=== PATIENT | male | born 1955 | race Caucasian/White ===

== ENCOUNTER → 2021-05-20 10:53 | Outpatient (BNVA) | payer MEDICARE, OTHER, SELFPAY | PROVIDERS: PCP Family Medicine Adult Medicine; Visit Provider Family Medicine Adult Medicine | DX: Z00.00 Encounter for general adult medical examination without abnormal findings (principal); J01.90 Acute sinusitis, unspecified; Z87.438 Personal history of other diseases of male genital organs; J30.9 Allergic rhinitis, unspecified; Z83.3 Family history of diabetes mellitus; Z68.28 Body mass index [BMI] 28.0-28.9, adult; Z71.89 Other specified counseling | CPT/HCPCS: 80053; 83036; 84443; 85025; G0103 ==

== ENCOUNTER 2021-06-21 20:32 | Emergency (ER) | payer MEDICARE, OTHER, SELFPAY ==
--- NOTE | 2021-06-21 03:22 | XRR_ITS ---
PROCEDURE INFORMATION: Exam: XR Chest Exam date and time: 06/21/2021 3:22 AM Age: 66 years old Clinical indication: Pain; Chest pressure; Additional info: Cp TECHNIQUE: Imaging protocol: XR of the chest. Views: 1 view. COMPARISON: No relevant prior studies available. FINDINGS: Lungs: Unremarkable. No consolidation. Pleural spaces: Unremarkable. No pleural effusion. No pneumothorax. Heart/Mediastinum: Unremarkable. No cardiomegaly. Bones/joints: Unremarkable. XR/XR chest 1V portable [id number] IMPRESSION: No acute findings.
[2021-06-21 20:41] VITALS: BP 146/84; PULSE 86; RESP 18; TEMP 36.1; O2SAT 96; BMI 28.0
[2021-06-21 21:38] VITALS: BP 125/69; PULSE 84; RESP 20; O2SAT 94
[2021-06-21 22:00] VITALS: BP 131/80; PULSE 74; RESP 16; O2SAT 93
--- NOTE | 2021-06-21 22:17 | W.ED.SOB ---
Documented by User: Lenard Ramirez DO 06/22/21 06:12 HPI - SOB/Dyspnea General: Chief Complaint: Shortness of Breath/Dyspnea Stated Complaint: SOB Time Seen by Provider: 06/21/21 21:07 History of Present Illness: HPI Narrative: 66-year-old male presents with mainly right-sided and mainly posterior chest discomfort. Is been going on since yesterday. He notes that he was mowing under a trailer house yesterday, and did a lot of pushing and pulling. He is thinking that it might just be a pulled muscle. He called his brother who is a physician. Because it is much worse with inspiration, and he feels short of breath with it, his brother was concerned that it could be more than just that. He denies any fever. He denies cough. No diarrhea or other COVID-19 symptoms. No long car trips. No history of heart disease. MD elicited complaint: shortness of breath, pain with inspiration and chest pain Pertinent past history: other Onset (ago): hour(s) (24) Severity: moderate Exacerbating factors: movement and coughing Associated symptoms: Reports chest pain; Deny abdominal pain, chest congestion, cough, diaphoresis, fever(s), hemoptysis, nausea, palpitations or vomiting Treatment prior to arrival: none Review of Systems Const: Denies: fever(s) or diaphoresis Card: Reports: chest pain; Denies: palpitations Resp: Denies: hemoptysis or chest congestion GI: Denies: abdominal pain, nausea or vomiting [facility] ED PFSH: Medical History (Updated 06/22/21 @ 09:09 by Samuel Quinn DO) Allergic rhinitis due to allergen FH: diabetes mellitus Hx of chronic prostatitis Medicare annual wellness visit, initial Sinusitis, acute Surgical History (Updated 05/20/21 @ 08:58 by Fredrick Alexander MD) Hx of shoulder surgery Family History (Updated 05/20/21 @ 08:34 by Ruby Scott LPN) Other CAD (coronary artery disease) Social History (Updated 05/20/21 @ 08:36 by Ruby Scott LPN) Smoking and tobacco status: never smoked Alcohol intake: never Marital status: Number of children: 3 Number of grandchildren: 12 Current occupational status: employed and retired Physical Exam Const: GENERAL APPEARANCE: cooperative, comfortable and well developed; not ill appearing and not frail appearing ORIENTATION/CONSCIOUSNESS: Yes oriented to person, Yes oriented to place and Yes oriented to time HENMT: COMMON NORMALS: normocephalic, external ears normal and Normal external nose present HEAD & SCALP: normocephalic FACE & SINUS: normal facial exam NOSE: Normal external nose present and No nasal discharge present EXTERNAL EAR: Yes external ears normal Eye: COMMON NORMALS: Equal, round and reactive pupils present, EOMs intact bilaterally and conjunctivae normal EYELID: eyelids normal CONJUNCTIVA: Yes conjunctivae normal PUPIL: Yes Equal, round and reactive pupils present Neck/C-Spine: GENERAL: No tracheal deviation Chest: COMMONS NORMALS: normal inspection of the chest CHEST: No tenderness Resp: COMMON NORMALS: clear to auscultation bilaterally EFFORT & INSPECTION: No tachypneic, No respiratory distress, No retractions, No uses accessory muscles and No tracheal deviation AUSCULTATION: clear to auscultation bilaterally, no rhonchi, no wheezes and lung sounds not diminished Cardio: COMMON NORMALS: regular rate and regular rhythm RATE: regular rate RHYTHM: regular rhythm HEART SOUNDS: no murmurs PERIPHERAL PULSES: radial pulses present GI: INSPECTION: No abdominal distension AUSCULTATION: No Hyperactive bowel sounds present and No Hypoactive bowel sounds present PALPATION: No Guarding due to palpation present (GI) and No Rigid due to palpation : COMMON NORMALS: Yes no CVA tenderness BLADDER/KIDNEY EXAM: Yes no CVA tenderness Back/Pelvis: COMMON NORMALS: no CVA tenderness Neuro: SENSORIUM/ORIENTATION: Yes oriented to person, Yes oriented to place and Yes oriented to time Psych: COMMON NORMALS: mental status grossly normal Skin: COMMON NORMALS: no rashes or lesions noted GENERAL SKIN EXAM: no rashes or lesions noted Course Vital Signs: Vital signs: Vital Signs Temperature 96.9 F L 06/21/21 20:41 Pulse Rate 73 06/22/21 07:00 Respiratory Rate 20 H 06/22/21 07:00 Blood Pressure 142/74 06/22/21 07:00 Pulse Oximetry 95 06/22/21 07:00 MDM - SOB/Dyspnea MDM Narrative: Medical decision making narrative: 66-year-old gentleman presents with a pleuritic type chest pain worsening with inspiration. He has not had a cough or fever. He is short of breath with the pain. His EKG shows a normal sinus rhythm with no acute ST elevation. His rate has been in the 70s. His axis is normal. He is normotensive. Saturations are from 92 to 97% on room air. He is not tachypneic. His D-dimer was 1000. Chest x-ray is normal. He has a contrast dye allergy, which evidently causes angioedema, because of this, we have been waiting on isotope for a V/Q scan which is yet to be done. He will be checked out to Dr. Quinn at shift change. Lab Data: Labs: Lab Results 06/21/21 06/21/21 06/21/21 Range/Units 00:20 21:30 21:30 WBC 6.5 (4.0-10.0) 10^3/ uL RBC 4.52 (4.1-5.3) 10^6/u L Hgb 13.2 (11.7-16.6) g/dL Hct 40.9 L (42.0-52.0) % MCV 90.5 (80-94) fl MCH 29.2 (28.0-34.0) pg MCHC 32.3 (30.0-36.0) g/dL RDW 12.9 (12.1-15.1) % Plt Count 260 (130-400) 10^3/c mm MPV 10.1 (7.4-10.4) fL Neut % (Auto) 63.1 % Lymph % (Auto) 22.3 % [place] % (Auto) 12.0 % Eos % (Auto) 1.4 % Baso % (Auto) 0.6 % Neut # (Auto) 4.11 (1.8-7.7) 10^3/u L Lymph # (Auto) 1.5 (0.8-4.8) 10^3/u L [place] # (Auto) 0.8 (0.2-0.9) 10^3/u L Eos # (Auto) 0.1 (0.0-0.8) 10^3/u L Baso # (Auto) 0.0 (0.0-0.1) 10^3/u L Nucleated RBC % (a uto) 0 % Nucleated RBCs # 0.0 /100WBC D-Dimer 1.03 H (0-0.59) ug/mIFE U Sodium (136-145) mmol/L Potassium (3.5-5.1) mmol/L Chloride (98-107) mmol/L Carbon Dioxide (22-29) mmol/L Anion Gap (5-19) BUN (8-23) mg/dL Creatinine (0.7-1.2) mg/dL GFR Calculation (90-130) mL/min Glucose (65-115) mg/dL Calculated Osmolal ity (285-295) mOsm/k g Calcium (8.5-10.5) mg/dL Total Bilirubin (0.15-1.2) mg/dL AST (0-40) U/L ALT (0-41) U/L Alkaline Phosphata se (40-130) IU/L Troponin T Baselin e (0-15) ng/L Troponin T 120 Min [place] 8.47 (0-15) ng/L Delta Troponin T 0.47 (0-10) ABS# Troponin T Hi Sens 6Hr (0-15) ng/L Troponin T Hi Sens 6Hr Delta (0-12) ng/L NT-Pro-B Natriuret Pep (0-125) pg/mL Total Protein (6.6-8.7) g/dL Albumin (3.5-5.2) g/dL Globulin (1.3-4.6) g/dL SARS-CoV-2 Ag (Rap id) (Negative) 06/21/21 06/21/21 06/22/21 Range/Units 21:30 21:30 00:45 WBC (4.0-10.0) 10^3/ uL RBC (4.1-5.3) 10^6/u L Hgb (11.7-16.6) g/dL Hct (42.0-52.0) % MCV (80-94) fl MCH (28.0-34.0) pg MCHC (30.0-36.0) g/dL RDW (12.1-15.1) % Plt Count (130-400) 10^3/c mm MPV (7.4-10.4) fL Neut % (Auto) % Lymph % (Auto) % [place] % (Auto) % Eos % (Auto) % Baso % (Auto) % Neut # (Auto) (1.8-7.7) 10^3/u L Lymph # (Auto) (0.8-4.8) 10^3/u L [place] # (Auto) (0.2-0.9) 10^3/u L Eos # (Auto) (0.0-0.8) 10^3/u L Baso # (Auto) (0.0-0.1) 10^3/u L Nucleated RBC % (a uto) % Nucleated RBCs # /100WBC D-Dimer (0-0.59) ug/mIFE U Sodium 139 (136-145) mmol/L Potassium 4.3 (3.5-5.1) mmol/L Chloride 102 (98-107) mmol/L Carbon Dioxide 31 H (22-29) mmol/L Anion Gap 10.3 (5-19) BUN 22 (8-23) mg/dL Creatinine 0.9 (0.7-1.2) mg/dL GFR Calculation 84.7 L (90-130) mL/min Glucose 100 (65-115) mg/dL Calculated Osmolal ity 291 (285-295) mOsm/k g Calcium 8.8 (8.5-10.5) mg/dL Total Bilirubin 0.3 (0.15-1.2) mg/dL AST 18 (0-40) U/L ALT 17 (0-41) U/L Alkaline Phosphata se 60 (40-130) IU/L Troponin T Baselin e 8 (0-15) ng/L Troponin T 120 Min [place] (0-15) ng/L Delta Troponin T (0-10) ABS# Troponin T Hi Sens 6Hr (0-15) ng/L Troponin T Hi Sens 6Hr Delta (0-12) ng/L NT-Pro-B Natriuret Pep 50 (0-125) pg/mL Total Protein 6.6 (6.6-8.7) g/dL Albumin 4.0 (3.5-5.2) g/dL Globulin 2.6 (1.3-4.6) g/dL SARS-CoV-2 Ag (Rap id) Negative (Negative) 06/22/21 Range/Units 03:53 WBC (4.0-10.0) 10^3/ uL RBC (4.1-5.3) 10^6/u L Hgb (11.7-16.6) g/dL Hct (42.0-52.0) % MCV (80-94) fl MCH (28.0-34.0) pg MCHC (30.0-36.0) g/dL RDW (12.1-15.1) % Plt Count (130-400) 10^3/c mm MPV (7.4-10.4) fL Neut % (Auto) % Lymph % (Auto) % [place] % (Auto) % Eos % (Auto) % Baso % (Auto) % Neut # (Auto) (1.8-7.7) 10^3/u L Lymph # (Auto) (0.8-4.8) 10^3/u L [place] # (Auto) (0.2-0.9) 10^3/u L Eos # (Auto) (0.0-0.8) 10^3/u L Baso # (Auto) (0.0-0.1) 10^3/u L Nucleated RBC % (a uto) % Nucleated RBCs # /100WBC D-Dimer (0-0.59) ug/mIFE U Sodium (136-145) mmol/L Potassium (3.5-5.1) mmol/L Chloride (98-107) mmol/L Carbon Dioxide (22-29) mmol/L Anion Gap (5-19) BUN (8-23) mg/dL Creatinine (0.7-1.2) mg/dL GFR Calculation (90-130) mL/min Glucose (65-115) mg/dL Calculated Osmolal ity (285-295) mOsm/k g Calcium (8.5-10.5) mg/dL Total Bilirubin (0.15-1.2) mg/dL AST (0-40) U/L ALT (0-41) U/L Alkaline Phosphata se (40-130) IU/L Troponin T Baselin e (0-15) ng/L Troponin T 120 Min [place] (0-15) ng/L Delta Troponin T (0-10) ABS# Troponin T Hi Sens 6Hr 8.40 (0-15) ng/L Troponin T Hi Sens 6Hr Delta 0.40 (0-12) ng/L NT-Pro-B Natriuret Pep (0-125) pg/mL Total Protein (6.6-8.7) g/dL Albumin (3.5-5.2) g/dL Globulin (1.3-4.6) g/dL SARS-CoV-2 Ag (Rap id) (Negative) Discharge Plan Discharge Patient Disposition: Home Clinical Impression: Chest pain, pleuritic Condition: Stable Prescriptions: New aspirin 81 mg tablet,delayed release (DR/EC) 81 mg PO DAILY Qty: 30 RF: 0 No Action loratadine [Claritin] 10 mg tablet 20 mg PO BID RF: 0 potassium 99 mg Tablet 99 mg PO DAILY RF: 0 magnesium 250 mg Tablet 250 mg PO DAILY RF: 0 saw palmetto 500 mg Capsule 500 mg PO DAILY RF: 0 Fish Oil 1,200 (144-216) mg Capsule 1 cap PO DAILY RF: 0 Probiotic 20 billion cell Capsule 20,000 mmu cells PO DAILY RF: 0 Discharge Orders: Discharge ED (Routine); Ordered 06/22/21 Ordered By: Samuel Quinn Referrals: Fredrick Alexander MD [Primary Care Provider] - Discharge Diet: Usual diet Discharge Activity: Limit activity as instructed Patient Instructions: Opioid Safety Activity Restrictions/Additional Instructions: Baby aspirin daily. Avoid any exertional work avoid heat exposure. If you have recurrence of chest discomfort return. Sign Out Sign Out Data: Patient Sign Out occurred on 06/22/21 at 07:22. Patient's care was discussed, and care was transferred from to Samuel Quinn DO. Coding Level of Care Code ED Hand Stonecutter for Chg Fwd Exam Comprehensive Documented by User: Samuel Quinn DO 06/22/21 09:17 HPI - SOB/Dyspnea General: Chief Complaint: Shortness of Breath/Dyspnea Stated Complaint: SOB Time Seen by Provider: 06/21/21 21:07 PFSH ED PFSH: Medical History (Updated 06/22/21 @ 09:09 by Samuel Quinn DO) Allergic rhinitis due to allergen FH: diabetes mellitus Hx of chronic prostatitis Medicare annual wellness visit, initial Sinusitis, acute Surgical History (Updated 05/20/21 @ 08:58 by Fredrick Alexander MD) Hx of shoulder surgery Family History (Updated 05/20/21 @ 08:34 by Ruby Scott LPN) Other CAD (coronary artery disease) Social History (Updated 05/20/21 @ 08:36 by Ruby Scott LPN) Smoking and tobacco status: never smoked Alcohol intake: never Marital status: Number of children: 3 Number of grandchildren: 12 Current occupational status: employed and retired Course Vital Signs: Vital signs: Vital Signs Temperature 96.9 F L 06/21/21 20:41 Pulse Rate 73 06/22/21 07:00 Respiratory Rate 20 H 06/22/21 07:00 Blood Pressure 142/74 06/22/21 07:00 Pulse Oximetry 95 06/22/21 07:00 MDM - SOB/Dyspnea MDM Narrative: Medical decision making narrative: Care assumed at change of shift from Dr. Ramirez. Chart reviewed 6-hour troponin remained negative his EKG is unremarkable remainder of his labs reviewed we were waiting on the VQ scan he had problems previously with IV contrast dye with angioedema so we did the V/Q. VQ was read as low probability no evidence of PE and normal perfusion. Discussing with the patient he still is describing musculoskeletal pleuritic-like chest pain. However he has been having decreased exercise tolerance and increased shortness of breath with minimal exertion he had written it off to being in the heat. He has noticed his gotten progressively worse over the last 3 weeks. He is not currently having any chest pain. His brother is a physician is also at the bedside. We have a long discussion about differential diagnosis and his chest discomfort. Sounds like he is having 2 separate issues. The pleuritic musculoskeletal-like chest pain he presented with today but then the shortness of breath and decreased exercise tolerance that have been building up. At this point organ to go ahead and discharge him home since his 6 hours negative we will put him on aspirin daily and set him up for Lexiscan sestamibi stress test. If he has any worsening symptoms he should return. Consider placing him on long-acting nitrate however his home blood pressures generally run low and I do not think he would tolerate it. He typically has a asymptomatic bradycardia largely due to exercise tolerance, so I do not think it would be meeks to place him on a beta-valentina either. Reviewed with him and his if he has any symptoms she should return immediately. Lab Data: Labs: Lab Results 06/21/21 06/21/21 06/21/21 Range/Units 00:20 21:30 21:30 WBC 6.5 (4.0-10.0) 10^3/ uL RBC 4.52 (4.1-5.3) 10^6/u L Hgb 13.2 (11.7-16.6) g/dL Hct 40.9 L (42.0-52.0) % MCV 90.5 (80-94) fl MCH 29.2 (28.0-34.0) pg MCHC 32.3 (30.0-36.0) g/dL RDW 12.9 (12.1-15.1) % Plt Count 260 (130-400) 10^3/c mm MPV 10.1 (7.4-10.4) fL Neut % (Auto) 63.1 % Lymph % (Auto) 22.3 % [place] % (Auto) 12.0 % Eos % (Auto) 1.4 % Baso % (Auto) 0.6 % Neut # (Auto) 4.11 (1.8-7.7) 10^3/u L Lymph # (Auto) 1.5 (0.8-4.8) 10^3/u L [place] # (Auto) 0.8 (0.2-0.9) 10^3/u L Eos # (Auto) 0.1 (0.0-0.8) 10^3/u L Baso # (Auto) 0.0 (0.0-0.1) 10^3/u L Nucleated RBC % (a uto) 0 % Nucleated RBCs # 0.0 /100WBC D-Dimer 1.03 H (0-0.59) ug/mIFE U Sodium (136-145) mmol/L Potassium (3.5-5.1) mmol/L Chloride (98-107) mmol/L Carbon Dioxide (22-29) mmol/L Anion Gap (5-19) BUN (8-23) mg/dL Creatinine (0.7-1.2) mg/dL GFR Calculation (90-130) mL/min Glucose (65-115) mg/dL Calculated Osmolal ity (285-295) mOsm/k g Calcium (8.5-10.5) mg/dL Total Bilirubin (0.15-1.2) mg/dL AST (0-40) U/L ALT (0-41) U/L Alkaline Phosphata se (40-130) IU/L Troponin T Baselin e (0-15) ng/L Troponin T 120 Min [place] 8.47 (0-15) ng/L Delta Troponin T 0.47 (0-10) ABS# Troponin T Hi Sens 6Hr (0-15) ng/L Troponin T Hi Sens 6Hr Delta (0-12) ng/L NT-Pro-B Natriuret Pep (0-125) pg/mL Total Protein (6.6-8.7) g/dL Albumin (3.5-5.2) g/dL Globulin (1.3-4.6) g/dL SARS-CoV-2 Ag (Rap id) (Negative) 06/21/21 06/21/21 06/22/21 Range/Units 21:30 21:30 00:45 WBC (4.0-10.0) 10^3/ uL RBC (4.1-5.3) 10^6/u L Hgb (11.7-16.6) g/dL Hct (42.0-52.0) % MCV (80-94) fl MCH (28.0-34.0) pg MCHC (30.0-36.0) g/dL RDW (12.1-15.1) % Plt Count (130-400) 10^3/c mm MPV (7.4-10.4) fL Neut % (Auto) % Lymph % (Auto) % [place] % (Auto) % Eos % (Auto) % Baso % (Auto) % Neut # (Auto) (1.8-7.7) 10^3/u L Lymph # (Auto) (0.8-4.8) 10^3/u L [place] # (Auto) (0.2-0.9) 10^3/u L Eos # (Auto) (0.0-0.8) 10^3/u L Baso # (Auto) (0.0-0.1) 10^3/u L Nucleated RBC % (a uto) % Nucleated RBCs # /100WBC D-Dimer (0-0.59) ug/mIFE U Sodium 139 (136-145) mmol/L Potassium 4.3 (3.5-5.1) mmol/L Chloride 102 (98-107) mmol/L Carbon Dioxide 31 H (22-29) mmol/L Anion Gap 10.3 (5-19) BUN 22 (8-23) mg/dL Creatinine 0.9 (0.7-1.2) mg/dL GFR Calculation 84.7 L (90-130) mL/min Glucose 100 (65-115) mg/dL Calculated Osmolal ity 291 (285-295) mOsm/k g Calcium 8.8 (8.5-10.5) mg/dL Total Bilirubin 0.3 (0.15-1.2) mg/dL AST 18 (0-40) U/L ALT 17 (0-41) U/L Alkaline Phosphata se 60 (40-130) IU/L Troponin T Baselin e 8 (0-15) ng/L Troponin T 120 Min [place] (0-15) ng/L Delta Troponin T (0-10) ABS# Troponin T Hi Sens 6Hr (0-15) ng/L Troponin T Hi Sens 6Hr Delta (0-12) ng/L NT-Pro-B Natriuret Pep 50 (0-125) pg/mL Total Protein 6.6 (6.6-8.7) g/dL Albumin 4.0 (3.5-5.2) g/dL Globulin 2.6 (1.3-4.6) g/dL SARS-CoV-2 Ag (Rap id) Negative (Negative) 06/22/21 Range/Units 03:53 WBC (4.0-10.0) 10^3/ uL RBC (4.1-5.3) 10^6/u L Hgb (11.7-16.6) g/dL Hct (42.0-52.0) % MCV (80-94) fl MCH (28.0-34.0) pg MCHC (30.0-36.0) g/dL RDW (12.1-15.1) % Plt Count (130-400) 10^3/c mm MPV (7.4-10.4) fL Neut % (Auto) % Lymph % (Auto) % [place] % (Auto) % Eos % (Auto) % Baso % (Auto) % Neut # (Auto) (1.8-7.7) 10^3/u L Lymph # (Auto) (0.8-4.8) 10^3/u L [place] # (Auto) (0.2-0.9) 10^3/u L Eos # (Auto) (0.0-0.8) 10^3/u L Baso # (Auto) (0.0-0.1) 10^3/u L Nucleated RBC % (a uto) % Nucleated RBCs # /100WBC D-Dimer (0-0.59) ug/mIFE U Sodium (136-145) mmol/L Potassium (3.5-5.1) mmol/L Chloride (98-107) mmol/L Carbon Dioxide (22-29) mmol/L Anion Gap (5-19) BUN (8-23) mg/dL Creatinine (0.7-1.2) mg/dL GFR Calculation (90-130) mL/min Glucose (65-115) mg/dL Calculated Osmolal ity (285-295) mOsm/k g Calcium (8.5-10.5) mg/dL Total Bilirubin (0.15-1.2) mg/dL AST (0-40) U/L ALT (0-41) U/L Alkaline Phosphata se (40-130) IU/L Troponin T Baselin e (0-15) ng/L Troponin T 120 Min [place] (0-15) ng/L Delta Troponin T (0-10) ABS# Troponin T Hi Sens 6Hr 8.40 (0-15) ng/L Troponin T Hi Sens 6Hr Delta 0.40 (0-12) ng/L NT-Pro-B Natriuret Pep (0-125) pg/mL Total Protein (6.6-8.7) g/dL Albumin (3.5-5.2) g/dL Globulin (1.3-4.6) g/dL SARS-CoV-2 Ag (Rap id) (Negative) Discharge Plan Discharge Patient Disposition: Home Clinical Impression: Chest pain, pleuritic Condition: Stable Prescriptions: New aspirin 81 mg tablet,delayed release (DR/EC) 81 mg PO DAILY Qty: 30 RF: 0 No Action loratadine [Claritin] 10 mg tablet 20 mg PO BID RF: 0 potassium 99 mg Tablet 99 mg PO DAILY RF: 0 magnesium 250 mg Tablet 250 mg PO DAILY RF: 0 saw palmet[place] 500 mg Capsule 500 mg PO DAILY RF: 0 Fish Oil 1,200 (144-216) mg Capsule 1 cap PO DAILY RF: 0 Probiotic 20 billion cell Capsule 20,000 mmu cells PO DAILY RF: 0 Discharge Orders: Discharge ED (Routine); Ordered 06/22/21 Ordered By: Samuel Quinn Referrals: Fredrick Alexander MD [Primary Care Provider] - Discharge Diet: Usual diet Discharge Activity: Limit activity as instructed Patient Instructions: Opioid Safety Activity Restrictions/Additional Instructions: Baby aspirin daily. Avoid any exertional work avoid heat exposure. If you have recurrence of chest discomfort return. Sign Out Sign Out Data: Patient Sign Out occurred on 06/22/21 at 07:22. Patient's care was discussed, and care was transferred from to Samuel Quinn DO. Coding Level of Care Code ED Hand Stonecutter for Chg Fwd Exam Comprehensive
[2021-06-21 22:18] LABS: Basophils % 0.6 %; Eosinophils # 0.1 10^3/uL (0.0-0.8); Eosinophils % 1.4 %; Hematocrit 40.9 % (42.0-52.0); Hemoglobin 13.2 g/dL (11.7-16.6); Lymphocytes # 1.5 10^3/uL (0.8-4.8); Lymphocytes % 22.3 %; Mean Corpuscular HGB Conc 32.3 g/dL (30.0-36.0); Mean Corpuscular Hemoglobin 29.2 pg (28.0-34.0); Mean Corpuscular Volume 90.5 fl (80-94); Mean Platelet Volume 10.1 fL (7.4-10.4); Monocytes # 0.8 10^3/uL (0.2-0.9); Neutrophils # 4.11 10^3/uL (1.8-7.7); Neutrophils % 63.1 %; Nucleated Red Blood Cells % 0 %; Platelet Count 260 10^3/cmm (130-400); Red Blood Count 4.52 10^6/uL (4.1-5.3); Red Cell Distribution Width 12.9 % (12.1-15.1); White Blood Count 6.5 10^3/uL (4.0-10.0)
[2021-06-21 22:39] LABS: Troponin(5th) Baseline 8 ng/L (0-15)
[2021-06-21 22:47] LABS: Alanine Aminotransferase 17 U/L (0-41); Alkaline Phosphatase 60 IU/L (40-130); Aspartate Amino Transferase 18 U/L (0-40); Blood Urea Nitrogen 22 mg/dL (8-23); Calcium 8.8 mg/dL (8.5-10.5); Carbon Dioxide 31 mmol/L (22-29); Chloride 102 mmol/L (98-107); Globulin 2.6 g/dL (1.3-4.6); Glomerular Filtration Rate 84.7 mL/min (90-130); Glucose 100 mg/dL (65-115); NT Pro B Type Natriuretic Pept 50 pg/mL (0-125); Osmolality Calculated 291 mOsm/kg (285-295); Sodium 139 mmol/L (136-145); Total Bilirubin 0.3 mg/dL (0.15-1.2); Total Protein 6.6 g/dL (6.6-8.7)
[2021-06-21 23:00] VITALS: BP 128/84; PULSE 75; RESP 18; O2SAT 98
[2021-06-21 23:21] LABS: Anion Gap 10.3 (5-19); Potassium 4.3 mmol/L (3.5-5.1)
--- NOTE | 2021-06-21 23:47 | ECG_ITS ---
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 Measurements Intervals [place] Rate: 66 P: 46 DE: 204 QRS: 32 QRSD: 87 T: 4 QT: 403 QTc: 423 Interpretive Statements SINUS RHYTHM NONSPECIFIC ST & T-WAVE ABNORMALITY No previous ECG available for comparison Electronically Signed On 06-22-2021 13:05:13 CDT by Jessica Pena M.D. [email or web address] ([email or web address] va medical centerSocial Tree Medi[email or web address]/[id number]
[2021-06-21 23:55] LABS: D Dimer 1.03 ug/mIFEU (0-0.59)
[2021-06-22] VITALS: BP 122/79; PULSE 75; RESP 23; O2SAT 96
--- NOTE | 2021-06-22 00:18 | NMR_ITS ---
PROCEDURE INFORMATION: Exam: HI Lung Ventilation and Perfusion Imaging Exam date and time: 06/22/2021 12:18 AM Age: 66 years old Clinical indication: Chest wall pain; Patient HX: Chest pain, SOB x 2 days; Additional info: Chest pain high d dimer, angioedema with contrast dye TECHNIQUE: Imaging protocol: Nuclear pulmonary ventilation with aerosol or gas was performed followed by perfusion. Views: Ventilation acquired with multiple projections. Perfusion acquired with multiple projections. Radiopharmaceutical: 5.2 mCi Tc-99m MAA (Macroaggregated Albumin), IV. 32.2 mCi Tc-99m DTPA (DTPA Aerosol), Inhalation. COMPARISON: CR (CHEST, ) 06/21/2021 9:10 PM FINDINGS: Ventilation: Normal. No ventilation defects. Perfusion: Normal. No perfusion defects. HI/HI pul vent and perfus* [id number] IMPRESSION: Normal perfusion. No evidence of pulmonary embolism.
--- NOTE | 2021-06-22 00:23 | PC.NURSE ---
this nurse assumed care of patient from Betzaida HERNANDEZ at 0000
[2021-06-22] MEDS: ketorolac 30 mg/mL INJ 15 MG IVP (00:28)
[2021-06-22 01:06] LABS: Troponin 5 2HR 8.47 ng/L (0-15)
[2021-06-22 01:31] LABS: Troponin 5 2HR Delta 0.47 ABS# (0-10)
[2021-06-22 01:50] LABS: SARS Covid-2 Antigen Negative (Negative)
[2021-06-22 02:40] VITALS: BP 111/70; PULSE 67; RESP 16; O2SAT 91
[2021-06-22] MEDS: lidocaine 2% viscous 15 ML, aluminum-mag hydrox-simethicon 30 ML, sucralfate oral liq 1 GM PO (03:57)
[2021-06-22 04:01] VITALS: PULSE 74; RESP 25; O2SAT 97
[2021-06-22 07:00] VITALS: BP 142/74; PULSE 73; RESP 20; O2SAT 95
[2021-06-22 09:16] VITALS: BP 155/79; PULSE 63; RESP 15; O2SAT 96
--- NOTE | 2021-06-24 11:14 | DCPLANNER ---
digital marketing manager was asked to schedule an out patient stress test for patient. digital marketing manager faxed signed order to centralized scheduling, who will call patient with appointment information.
--- NOTE | 2021-06-25 07:51 | DCPLANNER ---
Patient has an out patient stress test scheduled for , July 11, 2021 at 9:15. Centralized scheduling will call patient with appointment information.
--- NOTE | 2021-07-26 08:32 | DCPLANNER ---
Patient had a follow up appointment scheduled for 07.11.21 with a stress test - patient did attend appointment.
== END 2021-06-22 09:16 | disposition home or self-care (01) ==
PROVIDERS: Emergency Medicine; Emergency Provider Family Medicine; PCP Family Medicine Adult Medicine
DX: R07.81 Pleurodynia (principal); Z20.822 Contact with and (suspected) exposure to COVID-19
CPT/HCPCS: 71045; 78014; 80053; 83880; 84484; 85025; 85378; 87426; 93005; 96374; 99284; A9540; A9567; J1885

== ENCOUNTER 2021-07-11 07:06 | Outpatient (CLI) | payer MEDICARE, OTHER, SELFPAY ==
[2021-07-11 07:27] VITALS: BMI 28.0
--- NOTE | 2021-07-11 07:34 | ECG_ITS ---
[facility] Test Date: 2021-07-11 Pat Name: Mario Alexander Department: Room: Gender: Male Salon Professional: : 1955 Requested By: Fredrick Benjamin Order Number: [id number] Jauregui MD: Jessica Pena M.D. Interpretive Statements NAME OF STUDY: LEXISCAN SESTAMIBI STRESS TEST INDICATION: Shortness of Breath PROCEDURE: At the baseline, the blood pressure was 127/82 mmHg with a heart rate of 49 bpm. The electrocardiogram showed sinus bradycardia, rightward axis. Nonspecific ST and T wave changes. The Lexiscan was infused over a period of 20 seconds. A total of 0.4 milligrams of Lexiscan was infused. The stress phase was continued for a total of 5 minutes. Heart rate at the end of the stress phase was 66 bpm with a blood pressure of 117/70 mmHg. The EKG at the peak infusion revealed no significant ST-T wave changes. The study was terminated due to protocol completion. Sestamibi was injected 20 seconds after the Lexiscan infusion. Blood pressure at the end of the recovery phase was 116/71 mmHg with a heart rate of 63 beats per minute. CONCLUSION: 1. No significant EKG changes with the LexiScan infusion. 2. No LexiScan induced chest pain or cardiac arrhythmia. 3. Normal blood pressure and heart rate response. 4. Sestamibi/sestamibi perfusion scan pending; see separate report. Electronically Signed On 07-16-2021 18:42:22 CDT by Jessica Pena M.D. [id number]
--- NOTE | 2021-07-11 07:35 | NMCV_ITS ---
NM cholo perf SPECT r/s* [id number] Mario Alexander Age: 66 Gender: M : 1955 Exam Date: 07/11/2021 08:12 Ordering Phys: Fredrick Alexander MD Technologist: GAB Guy Exam Location: [facility] Indications: SHORTNESS OF BREATH STRESS TEST Please see separate stress test report in [facility] for full findings IMAGE PROTOCOL Rest/Stress 1 Lexiscan Day Radiopharmaceutical Dose (mCi) Administration Site Administered by Rest: Tc-99m 10.9 IV GAB Enriquez Sestamibi Stress:Tc-99m 32.8 IV GAB Enriquez Sestamibi Rest: 11-Jul-2021 60 Discovery 630 Stress: 11-Jul-2021 30 Discovery 630 0.4mg Lexiscan. Images obtained in supine and prone position. SPECT RESULTS Technical Quality: Excellent Raw Data Analysis: Normal Image Corrections: No attenuation or motion correction applied Summed Stress Score: 3 Summed Rest Score: 4 Summed Difference Score: 0 PERFUSION FINDINGS Small sized perfusion abnormality of moderate severity of mid to apical inferior wall on rest and stress images. FUNCTIONAL RESULTS (calculated via Gated SPECT) Stress Image LV EF (%): 61 Stress EDV (mL):113 TID: 1.23 Stress ESV (mL):44 FUNCTIONAL FINDINGS: The left ventricle is normal in size. Transient Ischemia Dilatation of 1.2. There is normal left ventricular systolic function. The left ventricular ejection fraction is normal with a value of 61%. There is normal left ventricular wall thickening with no regional wall motion abnormality. Normal end-diastolic and end-systolic volumes. IMPRESSIONS 1. Small sized fixed perfusion abnormality of moderate severity of mid to apical inferior [place]hton. 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 2. Overall left ventricular systolic function is normal without regional wall motion abnormalities. 3. The left ventricular ejection fraction is normal with a value of 61%. 4. Normal end-diastolic and end-systolic volumes. 5. Transient ischemic dilation index mildly increased at 1.2. This may represent hypertensive response or subendocardial ischemia. 6. No prior similar studies to compare. Jessica Pena MD (Electronically Signed) Final Date: 16 July 2021 18:57 S
[2021-07-11] MEDS: regadenoson 0.4 Mg/5 ml Syringe IVP (08:52)
[2021-07-11 09:00] VITALS: BP 116/71; PULSE 63
== END 2021-07-11 07:07 | disposition home or self-care (01) ==
LOC: CDL 07:07
PROVIDERS: PCP Family Medicine Adult Medicine; Visit Provider Family Medicine Adult Medicine
DX: R06.02 Shortness of breath (principal); R94.39 Abnormal result of other cardiovascular function study
CPT/HCPCS: 78452; 93017; A9500; J2785

== ENCOUNTER → 2022-10-13 11:05 | Outpatient (BNVA) | payer MEDICARE, OTHER, SELFPAY | PROVIDERS: PCP Family Medicine Adult Medicine; Visit Provider Family Medicine Adult Medicine | DX: R97.20 Elevated prostate specific antigen [PSA] (principal); R03.0 Elevated blood-pressure reading, without diagnosis of hypertension | CPT/HCPCS: 80053; G0103 ==

== ENCOUNTER → 2023-11-12 14:44 | Outpatient (BNVA) | payer MEDICARE, OTHER, SELFPAY | PROVIDERS: PCP Family Medicine Adult Medicine; Visit Provider Family Medicine Adult Medicine | DX: R53.83 Other fatigue (principal); J18.9 Pneumonia, unspecified organism; Z00.00 Encounter for general adult medical examination without abnormal findings | CPT/HCPCS: 71046; 80053; 84443; 85025 ==

== ENCOUNTER 2023-11-26 06:42 | Outpatient (CLI) | payer MEDICARE, OTHER, SELFPAY ==
--- NOTE | 2023-11-26 07:15 | US_ITS ---
WS: [id number] Complete ABDOMINAL ULTRASOUND HISTORY: nausea and elevated right heidiaphram COMPARISON: None available. Liver: 15.9 cm in length. Normal size liver with coarse echotexture. Poor penetration. No mass identi fied. No bile duct dilatation. Portal Vein: Normal hepatopetal flow with monophasic waveform. Gallbladder: Normally distended gallbladder with no stones or wall thickening. CBD: 0.2 cm Pancreas: Poorly visualized. Right kidney: 11.8 cm x 6.6 x 5.1 cm. Cortex:1.0 cm. Normal size and echogenicity. No hydronephrosis or mass. Left kidney: 11.5 cm x 6.0 cm x 4.6 cm. Cortex: 1.2 cm. Normal size and echogenicity. No hydronephrosis or mass. Spleen: 10.5 cm in length. Normal. Aorta and IVC: Unremarkable abdominal aorta and IVC. Impression: 1. Technically difficult ultrasound evaluation of the abdomen due to body habitus. 2. Normal gallbladder. 3. Normal size liver with coarse echotexture. Differential includes hepatocellular disease and hepat ic steatosis. 4. No renal obstruction. 5. Poorly visualized pancreas.
== END 2023-11-26 06:43 | disposition home or self-care (01) ==
LOC: RAD 06:43
PROVIDERS: PCP Family Medicine Adult Medicine; Visit Provider Family Medicine Adult Medicine
DX: J98.6 Disorders of diaphragm (principal); R11.0 Nausea
CPT/HCPCS: 76700

== ENCOUNTER → 2023-12-29 13:36 | Outpatient (BNVA) | payer MEDICARE, OTHER, SELFPAY | PROVIDERS: PCP Family Medicine Adult Medicine; Referring Provider Family Medicine Adult Medicine; Visit Provider Internal Medicine | DX: R07.9 Chest pain, unspecified (principal); R06.02 Shortness of breath; R42 Dizziness and giddiness; I44.0 Atrioventricular block, first degree; R94.31 Abnormal electrocardiogram [ECG] [EKG]; I49.1 Atrial premature depolarization; I49.3 Ventricular premature depolarization; I47.10 Supraventricular tachycardia, unspecified | CPT/HCPCS: 93005; 93242; 99214 ==

== ENCOUNTER 2024-01-04 07:22 | Outpatient (CLI) | payer MEDICARE, OTHER, SELFPAY ==
--- NOTE | 2024-01-04 08:08 | NMCV_ITS ---
NM cholo perf SPECT r/s* [id number] Mario Alexander Age: 68 Gender: M : 1955 Exam Date: 01/04/2024 08:42 Ordering Phys: Mariusz Marsh M.D ([email or web address]) Technologist: GAB Guy Exam Location: [facility] Indications: SHORTNESS OF BREATH STRESS TEST [facility] IMAGE PROTOCOL Rest/Stress 1 Lexiscan Day Radiopharmaceutical Dose (mCi) Administration Site Administered by Rest: Tc-99m 11.0 IV GAB Enriquez Sestamibi Stress:Tc-99m 32.8 IV GAB Enriquez Sestamibi Rest: 04-Jan-2024 60 Discovery 630 Stress: 04-Jan-2024 30 Discovery 630 0.4mg Lexiscan. Images obtained in supine and prone position. SPECT RESULTS Technical Quality: Excellent Raw Data Analysis: Normal Image Corrections: No attenuation or motion correction applied Summed Stress Score: 2 Summed Rest Score: 8 Summed Difference Score: 0 PERFUSION FINDINGS There is small to medium sized area of fixed, moderate intensity perfusion defect noted in inferior wall. This is consistent with small to medium sized area of prior infarct in RCA territory. No significant ischemia seen FUNCTIONAL RESULTS (calculated via Gated SPECT) Stress Image LV EF (%): 69 Stress EDV (mL):110 TID: 1.06 Stress ESV (mL):34 FUNCTIONAL FINDINGS: There is normal left ventricular systolic function. IMPRESSIONS 1. Small to medium sized area of prior infarct seen in the RCA territory. No evidence of ischemia 2. LV systolic function is normal Mariusz Marsh MD (Electronically Signed) Final Date: 04 January 2024 11:06 S
--- NOTE | 2024-01-04 08:08 | ECG_ITS ---
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 Interpretive Statements NAME OF STUDY: LEXISCAN SESTAMIBI STRESS TEST INDICATION: [CP/SOB, ] Procedure: At the baseline, the blood pressure was 144/82 mmHg with a heart rate of 54 bpm. The electrocardiogram showed sinus bradycardia, normal axis with normal ST and T's. The Lexiscan was infused over a period of 20 seconds. A total of 0.4 mg of Lexiscan was infused. The stress phase was continued for a total of 5 minutes. Heart rate was at the end of stress phase was 67 bpm and a blood pressure of 125/66 mmHg. The EKG at the peak infusion revealed normal sinus rhythm with no significant ST-T wave changes. Sestamibi was injected 20 seconds after the Lexiscan infusion. Blood pressure at the end of recovery phase was 128/69 mmHg with a heart rate of 70 bpm. Conclusion: 1. Normal EKG response to Lexiscan infusion 2. No Lexiscan induced chest pain or cardiac arrhythmia. 3. Normal blood pressure and heart rate response. 4. Sestamibi/sestamibi perfusion scan pending; see separate report. Electronically Signed On 01-14-2024 10:52:02 CDT by Mariusz Marsh M.D. [id number]
[2024-01-04 08:09] VITALS: BMI 29.0
[2024-01-04] MEDS: regadenoson 0.4 Mg/5 ml Syringe 0.400000000000000022 MG IVP (09:26)
[2024-01-04 09:38] VITALS: BP 122/70; PULSE 66
== END 2024-01-04 07:23 | disposition home or self-care (01) ==
PROVIDERS: PCP Family Medicine Adult Medicine; Visit Provider Internal Medicine
DX: R06.02 Shortness of breath (principal)
CPT/HCPCS: 36415; 78452; 93017; 96374; A9500; J2785

== ENCOUNTER 2024-01-06 07:06 | Outpatient (CLI) | payer MEDICARE, OTHER, SELFPAY ==
--- NOTE | 2024-01-06 07:15 | USCV_ITS ---
Mario Alexander Age: 68 Gender: M : 1955 Exam Date: 01/06/2024 07:23 Ordering Phys: Mariusz Marsh M.D ([email or web address]) Technologist: CHRISTIAN Exam Location: [facility] [place] Indication: CHEST PAIN AND SHORTNESS OF BREATH BP: 120 / 68 HR: 54 Rhythm: Sinus Technical Quality: Adequate MEASUREMENTS (Male / Female) Normal Values 2D ECHO LV Diastolic Diameter PLAX 4.5 cm 4.2 - 5.9 / 3.9 - 5.3 cm IVS Diastolic Thickness 0.9 cm 0.6 - 1.0 / 0.6 - 0.9 cm IVS Systolic Thickness 1.9 cm LVPW Diastolic Thickness 1.8 cm 0.6 - 1.0 / 0.6 - 0.9 cm LVPW Systolic Thickness 2.4 cm LVOT Diameter 2.0 cm LV Ejection Fraction 2D Teich 64.8 % LV Ejection Fraction MOD 2C 75.0 % LA Diameter 3.9 cm RA Systolic Volume 4C AL 26.4 ml RA Systolic Volume 4C MOD 24.8 ml Aorta at Sinotubular Diameter 2.5 cm IVC Diameter 1.2 cm M-MODE LA Ao Ratio MM 1.3 AV Cusp Separation MM 2.3 cm DOPPLER LVOT Peak Velocity 104.0 cm/s AV Area Cont Eq vti 2.6 cm squared MV Peak Velocity 61.0 cm/s MV Area PHT 3.2 cm squared Mitral E to A Ratio 1.1 TR Peak Velocity 214.0 cm/s TR Peak Gradient 18.3 mmHg TR Mean Velocity 178.0 cm/s TR Mean Gradient 13.2 mmHg TR Velocity Time Integral 65.3 cm Right Atrial Pressure 3.0 mmHg Pulmonary Artery Systolic Pressu 21.3 mmHg PV Peak Velocity 91.0 cm/s RV Ejection Time 0.4 s FINDINGS Left Ventricle Left ventricle is normal in size. LV systolic function is normal with EF of 60-65%. No regional wall motion abnormalities are seen. Right Ventricle Normal in size and function Right Atrium Normal in size Left Atrium Normal in size Mitral Valve Structurally normal mitral valve. Mild mitral regurgitation. Aortic Valve Structurally normal aortic valve. No significant stenosis or regurgitation. Tricuspid Valve Mild tricuspid regurgitation. Pulmonary artery systolic pressure is normal. Pulmonic Valve Not well visualized Pericardium Normal Aorta Normal in size IVC Appears to be normal CONCLUSIONS LV systolic function is normal with EF of 60-65% Mild mitral regurgitation Mild tricuspid regurgitation. No comparison studies are available. Mariusz Marsh MD (Electronically Signed) Final Date: 19 January 2024 12:18 S
== END 2024-01-06 07:07 | disposition home or self-care (01) ==
LOC: RAD 07:08
PROVIDERS: PCP Family Medicine Adult Medicine; Visit Provider Internal Medicine
DX: R06.02 Shortness of breath (principal); R07.9 Chest pain, unspecified; I25.2 Old myocardial infarction
CPT/HCPCS: 93306

== ENCOUNTER → 2024-04-12 13:15 | Outpatient (BNVA) | payer MEDICARE, OTHER, SELFPAY | PROVIDERS: PCP Family Medicine Adult Medicine; Visit Provider Internal Medicine | DX: R06.02 Shortness of breath (principal); R07.9 Chest pain, unspecified; R42 Dizziness and giddiness | CPT/HCPCS: 99214 ==

== ENCOUNTER 2024-09-19 12:04 | Emergency (ER) | payer MEDICARE, OTHER, SELFPAY ==
[2024-09-19 12:59] VITALS: BP 114/57; PULSE 102; RESP 18; TEMP 36.8; O2SAT 95; BMI 26.5
[2024-09-19 15:06] LABS: Basophils % 0.5 %; Eosinophils # 0.1 10^3/uL (0.0-0.8); Eosinophils % 1.3 %; Hematocrit 43.4 % (37-53); Lymphocytes # 1.1 10^3/uL (0.8-4.8); Lymphocytes % 13.5 %; Mean Corpuscular HGB Conc 32.7 g/dL (30-55); Mean Corpuscular Hemoglobin 28.5 pg (27-33); Mean Corpuscular Volume 87.1 fl (82-101); Mean Platelet Volume 9.4 fL (7.4-10.4); Monocytes # 0.8 10^3/uL (0.2-0.9); Monocytes % 9.8 %; Neutrophils # 5.88 10^3/uL (1.8-7.7); Neutrophils % 73.5 %; Nucleated Red Blood Cells % 0 %; Platelet Count 272 10^3/cmm (157-399); Red Blood Count 4.98 10^6/uL (3.85-5.65); Red Cell Distribution Width 12.7 % (12.1-15.1); White Blood Count 7.99 10^3/uL (3.29-11.43)
[2024-09-19 15:27] LABS: Alanine Aminotransferase 20 U/L (0-41); Albumin Level 3.7 g/dL (3.5-5.2); Alkaline Phosphatase 93 U/L (40-130); Anion Gap 15.5 (5-19); Aspartate Amino Transferase 22 U/L (0-40); Blood Urea Nitrogen 19 mg/dL (8-23); Calcium 8.4 mg/dL (8.5-10.5); Carbon Dioxide 26 mmol/L (22-29); Chloride 97 mmol/L (98-107); Creatinine Clr Calc Pharmacy 83.3029; Globulin 3.8 g/dL (1.3-4.6); Glomerular Filtration Rate 66.6 mL/min (90-130); Glucose 104 mg/dL (65-115); Osmolality Calculated 281 mOsm/kg (285-295); Potassium 4.5 mmol/L (3.5-5.1); Sodium 134 mmol/L (136-145); Total Bilirubin 0.4 mg/dL (0.15-1.2); Total Protein 7.5 g/dL (6.6-8.7)
[2024-09-19 15:28] LABS: Lactic Sepsis W/Reflex 0.9 mmol/L (0.5-2.2)
--- NOTE | 2024-09-19 19:37 | ED_ITS ---
HPI - Male Genitourinary 2 General: Chief complaint: Urogenital-Male Stated complaint: urinary issues Time Seen by Provider: 09/19/24 19:33 History of Present Illness: Patient presents to the ER having trouble urinating for approximately 5 days. States he has enlarged prostate and has urgency and pain but a little urine comes out. And he has frequency of up to 20 times a day. Patient says he also has some back pain that goes along with this. He has had a fever off and on. He did start azithromycin on Thursday approximately 3 days ago. But it has not helped. Related Data Home Medications Medication Instructions Recorded Confirmed loratadine 10 mg tablet (Claritin) 20 mg PO BID 05/20/21 04/12/24 magnesium 250 mg tablet 250 mg PO DAILY 06/21/21 04/12/24 saw palmetto 500 mg capsule 1,000 mg PO BID 06/27/21 04/12/24 Previous Rx's Medication Instructions Recorded sildenafil 100 mg tablet (Viagra) 100 mg PO DAILY PRN sexual 11/01/23 activity #30 tabs pantoprazole 40 mg tablet,delayed 40 mg PO DAILY PRN nausea acid 11/29/23 release reflux #90 tabs tamsulosin 0.4 mg capsule 0.8 mg (2 x 0.4 mg) PO DAILY BPH 02/23/24 wih LUTS #180 caps ciprofloxacin HCl 500 mg tablet 500 mg PO Q12H #20 tabs 09/20/24 phenazopyridine 100 mg tablet 100 mg PO Q8H 6 doses #6 tabs 09/20/24 (Pyridium) Allergies Allergy/AdvReac Type Severity Reaction Status Date / Time Iodinated Contrast Media Allergy Intermediate ADR/ALGY-Fl Verified 04/12/24 13:45 ushing Review of Systems 2 General: Reports: 10 or more systems reviewed and unremarkable except in HPI and below PFSH ED 2 PFSH: Medical History Insect bite left lower leg Chest pain in adult SOB (shortness of breath) on exertion Family history of heart disease Chronic GERD History of PUD with peptic ulcer as a young adult Chronic nausea Elevated hemidiaphragm Fatigue SOB (shortness of breath) Burn, hands, second degree FH: diabetes mellitus Hx of chronic prostatitis Medicare annual wellness visit, initial CAP (community acquired pneumonia) BPH loc w urin obs/LUTS Elevated PSA measurement S/P angiogram of extremity Allergic rhinitis due to allergen Surgical History Hx of shoulder surgery Family History Other CAD (coronary artery disease) Diabetes Social History Smoking and tobacco/nicotine status: never used tobacco/nicotine Alcohol intake: never Substance/Drug Use: never Marital status: Number of children: 3 Number of grandchildren: 12 Current occupational status: employed and retired Physical Exam 2 Const: COMMON NORMALS: no acute distress, average body habitus, patient oriented x3, no limitations, healthy appearing, alert and well nourished HENMT: COMMON NORMALS: normocephalic, atraumatic, hearing grossly normal bilaterally, external ears normal, Normal external nose present and moist oral mucous membranes HEAD & SCALP: normocephalic and atraumatic NOSE: Normal external nose present EXTERNAL EAR: Yes external ears normal Neck/C-Spine: COMMON NORMALS: no JVD Chest: COMMONS NORMALS: normal inspection of the chest and normal palpation of entire chest wall Resp: COMMON NORMALS: normal respiratory effort, No retractions, No use of accessory muscles and clear to auscultation bilaterally AUSCULTATION: clear to auscultation bilaterally Cardio: COMMON NORMALS: no JVD, regular rate, regular rhythm, S1 normal heart sound present, S2 normal heart sound present, No gallops present (Cardio), No clicks present (Cardio), No murmurs present (Cardio) and No rub (Cardio) R ATE: regular rate RHYTHM: regular rhythm HEART SOUNDS: S1 normal heart sound present and S2 normal heart sound present GI: COMMON NORMALS: Normal to inspection, nondistended, normoactive bowel sounds present, Soft to palpation, non-tender, No hepatosplenomegaly present and no masses PALPATION: Yes Soft to palpation and Yes No hepatosplenomegaly present Neuro: COMMON NORMALS: patient oriented x3 SENSORIUM/ORIENTATION: Yes alert Course 2 Vital Signs: Vital signs: Vital Signs Temperature 98.2 F 09/19/24 12:59 Pulse Rate 81 09/19/24 21:00 Respiratory Rate 15 09/19/24 21:00 Blood Pressure 114/71 09/19/24 21:00 Pulse Oximetry 95 09/19/24 21:00 Oxygen Delivery Me thod Room Air 09/19/24 21:00 MDM - Male Medical Decision Making Lab work was obtained as as well as a CT scan of the abdomen and pelvis without contrast, showed no urinary calculi and thickened urinary bladder with the signs of infection. Urinalysis showed greater than 100 white blood cells. Patient will be given Cipro and Pyridium here as well as 2 prescriptions sent to his pharmacy. Medical Records I reviewed the patient's medical records. Lab Data I reviewed the patient's lab results. 09/19/24 14:54 09/19/24 14:54 Radiology Impressions Abdomen/Pelvis CT 09/19/24 20:41 IMPRESSION: 1. Enlarged prostate 2. Thickened urinary bladder wall. Please correlate for any clinical signs or symptoms of urinary tract infection. 3. No urinary tract calculi 4. Appendicolith within an otherwise normal appendix. Laboratory Results WBC 7.99 10^3/uL (3.29-11.43) 09/19/24 14:54 RBC 4.98 10^6/uL (3.85-5.65) 09/19/24 14:54 Hgb 14.20 g/dL (11.27-16.99) 09/19/24 14:54 Hct 43.4 % (37-53) 09/19/24 14:54 MCV 87.1 fl (82-101) 09/19/24 14:54 MCH 28.5 pg (27-33) 09/19/24 14:54 MCHC 32.7 g/dL (30-55) 09/19/24 14:54 RDW 12.7 % (12.1-15.1) 09/19/24 14:54 Plt Count 272 10^3/cmm (157-399) 09/19/24 14:54 MPV 9.4 fL (7.4-10.4) 09/19/24 14:54 Neut % (Auto) 73.5 % 09/19/24 14:54 Lymph % (Auto) 13.5 % 09/19/24 14:54 Wilson % (Auto) 9.8 % 09/19/24 14:54 Eos % (Auto) 1.3 % 09/19/24 14:54 Baso % (Auto) 0.5 % 09/19/24 14:54 Neut # (Auto) 5.88 10^3/uL (1.8-7.7) 09/19/24 14:54 Lymph # (Auto) 1.1 10^3/uL (0.8-4.8) 09/19/24 14:54 Wilson # (Auto) 0.8 10^3/uL (0.2-0.9) 09/19/24 14:54 Eos # (Auto) 0.1 10^3/uL (0.0-0.8) 09/19/24 14:54 Baso # (Auto) 0.0 10^3/uL (0.0-0.1) 09/19/24 14:54 Nucleated RBC % (auto) 0 % 09/19/24 14:54 Nucleated RBCs # 0.0 /100WBC 09/19/24 14:54 Sodium 134 mmol/L (136-145) L 09/19/24 14:54 Potassium 4.5 mmol/L (3.5-5.1) 09/19/24 14:54 Chloride 97 mmol/L (98-107) L 09/19/24 14:54 Carbon Dioxide 26 mmol/L (22-29) 09/19/24 14:54 Anion Gap 15.5 (5-19) 09/19/24 14:54 BUN 19 mg/dL (8-23) 09/19/24 14:54 Creatinine 1.1 mg/dL (0.7-1.2) 09/19/24 14:54 GFR Calculation 66.6 mL/min (90-130) L 09/19/24 14:54 Glucose 104 mg/dL (65-115) 09/19/24 14:54 Calculated Osmolality 281 mOsm/kg (285-295) L 09/19/24 14:54 Lactic Acid 0.9 mmol/L (0.5-2.2) 09/19/24 14:54 Calcium 8.4 mg/dL (8.5-10.5) L 09/19/24 14:54 Total Bilirubin 0.4 mg/dL (0.15-1.2) 09/19/24 14:54 AST 22 U/L (0-40) 09/19/24 14:54 ALT 20 U/L (0-41) 09/19/24 14:54 Alkaline Phosphatase 93 U/L (40-130) 09/19/24 14:54 Total Protein 7.5 g/dL (6.6-8.7) 09/19/24 14:54 Albumin 3.7 g/dL (3.5-5.2) 09/19/24 14:54 Globulin 3.8 g/dL (1.3-4.6) 09/19/24 14:54 Urine Color Dark yellow (Yellow) A 09/19/24 20:07 Urine Appearance Cloudy (CLEAR) A 09/19/24 20:07 Urine pH 5.5 (5-7) 09/19/24 20:07 Ur Specific [place] 1.025 (1.005-1.030) 09/19/24 20:07 Urine Protein 1+ (Negative) A 09/19/24 20:07 Urine Glucose (UA) Negative (Normal) 09/19/24 20:07 Urine Ketones 1+ (Negative) H 09/19/24 20:07 Urine Blood 3+ (Negative) A 09/19/24 20:07 Urine Nitrate Negative (Negative) 09/19/24 20:07 Urine Bilirubin Negative (Negative) 09/19/24 20:07 Urine Urobilinogen 1.0 mg/dL (Negative) 09/19/24 20:07 Ur Leukocyte Esterase 2+ (Negative) A 09/19/24 20:07 Urine RBC 21-50 /hpf (0-2) H 09/19/24 20:07 Urine WBC >100 /hpf (0-5) H 09/19/24 20:07 Ur Squamous Epith Cells 0-5 /hpf (0-5) 09/19/24 20:07 Amorphous Sediment Not Reportable 09/19/24 20:07 Urine Bacteria None seen /hpf (NONE) 09/19/24 20:07 Hyaline Casts 2.46 /lpf 09/19/24 20:07 All radiology interpretation(s) finalized by discharge Discharge Plan Discharge Patient Disposition: Home Clinical Impression: Urinary tract infection Qualifiers: Urinary tract infection type: acute pyelonephritis Qualified Code(s): N10 - Acute pyelonephritis Condition: Stable Prescriptions: New ciprofloxacin HCl 500 mg tablet 500 mg PO Q12H Qty: 20 0RF phenazopyridine [Pyridium] 100 mg tablet 100 mg PO Q8H Qty: 6 0RF No Action loratadine [Claritin] 10 mg tablet 20 mg PO BID sildenafil [Viagra] 100 mg tablet 100 mg PO DAILY PRN (Reason: sexual activity) Qty: 30 2RF Rx Instructions: take 1/2 to one tab, 30 minutes to 4 hours before activity pantoprazole 40 mg tablet,delayed release (DR/EC) 40 mg PO DAILY PRN (Reason: nausea acid reflux) Qty: 90 3RF Rx Instructions: Take daily for the first months and then as needed tamsulosin 0.4 mg capsule 0.8 mg PO DAILY Qty: 180 1RF magnesium 250 mg Tablet 250 mg PO DAILY saw palmetto 500 mg capsule 1,000 mg PO BID Discharge Orders: Discharge ED (Routine); Ordered 09/20/24 Ordered By: Znae Bee Referrals: Fredrick Alexander MD [Primary Care Provider] - 1 week Patient Instructions: Urinary Tract Infection in Men (ED) Activity Restrictions/Additional Instructions: 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 Please follow-up with your family doctor within the next 7 to 10 days for further evaluation and treatment as needed. Thank you for choosing [facility] for your healthcare needs today. Please realize that you were seen in the emergency department and that we are providing you with an emergency medical screening exam and this may not be a complete and all exclusive of all testing and/or medical workup we may need to determine your element or severity of your illness. It is very important that you follow-up as instructed with your primary care provider or specialist for the additional evaluation and to discuss your medical treatment plan. You may return to the emergency department should you have concerns or if your condition changes or worsens in any way. 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
[2024-09-19 20:20] LABS: Bilirubin Urine Negative (Negative); Blood Urine 3+ (Negative); Glucose Urine UA Negative (Normal); Ketones Urine 1+ (Negative); Leukocyte Esterase Urine 2+ (Negative); Nitrate Urine Negative (Negative); Protein Urine 1+ (Negative); Specific Gravity, Urine 1.025 (1.005-1.030); Urine Appearance Cloudy (CLEAR); Urine Color Dark Yellow (Yellow); pH Urine 5.5 (5-7)
[2024-09-19 20:25] LABS: Bacteria Urine None Seen /hpf; Hyaline Casts Urine 2.46 /lpf; RBC Urine 21-50 /hpf (0-2); Squamous Epithelial Cell Urine 0-5 /hpf (0-5); WBC Urine >100 /hpf (0-5)
[2024-09-19 20:30] LABS: Add Urine Culture? Yes
[2024-09-19 20:37] VITALS: BP 119/76; PULSE 77; RESP 17; O2SAT 96
--- NOTE | 2024-09-19 20:41 | CTR_ITS ---
PROCEDURE INFORMATION: Exam: CT Abdomen And Pelvis Without Contrast Exam date and time: 09/19/2024 9:11 PM Age: 69 years old Clinical indication: Other: Hematuria dwight flank pain; Additional info: Hematuria flank pain bph TECHNIQUE: Imaging protocol: Computed tomography of the abdomen and pelvis without contrast. Radiation optimization: All CT scans at this facility use at least one of these dose optimization techniques: automated exposure control; mA and/or kV adjustment per patient size (includes targeted exams where dose is matched to clinical indication); or iterative reconstruction. COMPARISON: US abdomen complete* [id number] 11/26/2023 6:50 AM RADIATION DOSE METRICS: Total DLP (mGy-cm): 887.13 FINDINGS: Limitations: The absence of intravenous contrast lessens the sensitivity of this study for solid organ abnormalities. Lungs: Lung bases are clear. Liver: There is no focal abnormality within the liver. Gallbladder and biliary ducts: The gallbladder is normal. There is no common bile duct dilation. Pancreas: The pancreas is normal. Spleen: The spleen is normal. Adrenal glands: The adrenal glands are normal. Kidneys and ureters: The kidneys are normal. There is no evidence of hydronephrosis. There is no evidence of renal or ureteral calcifications. Stomach and bowel: Mild diverticulosis is present in the distal colon. There is no evidence of colitis/diverticulitis. Appendix: There are 2 appendicolith located proximally within an otherwise normal-appearing appendix. Intraperitoneal space: There is no evidence of free intraperitoneal fluid. Vasculature: The aorta demonstrates mild atherosclerotic calcification. There is no evidence of an abdominal aortic aneurysm. Lymph nodes: There is no evidence of lymphadenopathy. Urinary bladder: There is severe thickening of the urinary bladder wall which could be due to muscular hypertrophy from chronic outlet obstruction, however please correlate for any clinical signs or symptoms of urinary tract infection. Reproductive: The prostate demonstrates marked nonspecific enlargement. The seminal vesicles are normal. The prostate gland demonstrates nonspecific parenchymal calcifications. Bones/joints: There is chronic appearing Schmorl's node deformity superior endplate of L3. There is no evidence of acute fracture. Soft tissues: There are small inguinal hernias containing only fat. CT/CT kidney stone [id number] IMPRESSION: 1. Enlarged prostate 2. Thickened urinary bladder wall. Please correlate for any clinical signs or symptoms of urinary tract infection. 3. No urinary tract calculi 4. Appendicolith within an otherwise normal appendix.
[2024-09-19 21:00] VITALS: BP 114/71; PULSE 81; RESP 15; O2SAT 95
[2024-09-19 22:30] VITALS: BP 114/70; PULSE 80; O2SAT 96
[2024-09-20] MEDS: ciprofloxacin 500 mg Tablet PO (00:45)
[2024-09-20] MEDS: phenazopyridine 100 mg Tablet PO (00:45)
[2024-09-20 01:00] VITALS: BP 109/70; PULSE 78; RESP 17; O2SAT 95
[2024-09-20 01:12] VITALS: BP 109/70; PULSE 78; O2SAT 95
== END 2024-09-20 01:00 | disposition home or self-care (01) ==
PROVIDERS: Emergency Medicine; Emergency Provider Emergency Medicine; PCP Family Medicine Adult Medicine
DX: N10 Acute pyelonephritis (principal); E11.9 Type 2 diabetes mellitus without complications
CPT/HCPCS: 36415; 74176; 80053; 81001; 83605; 85025; 87040; 87077; 87086; 87186; 99284

== ENCOUNTER → 2025-03-30 13:01 | Outpatient (BNVA) | payer MEDICARE, OTHER, SELFPAY | PROVIDERS: PCP Family Medicine Adult Medicine; Visit Provider Nurse Practitioner Family | DX: D48.5 Neoplasm of uncertain behavior of skin (principal); E88.2 Lipomatosis, not elsewhere classified; L82.1 Other seborrheic keratosis; D22.5 Melanocytic nevi of trunk; L81.4 Other melanin hyperpigmentation; L57.8 Other skin changes due to chronic exposure to nonionizing radiation; L91.8 Other hypertrophic disorders of the skin | CPT/HCPCS: 99203 ==